=== PATIENT | male | born 1960 | race Caucasian/White ===

== ENCOUNTER 2019-06-29 09:36 | Emergency (ER) | payer OTHER ==
[~2019-06-29] VITALS: Ht 177.8 cm; Wt 86.6 kg
[2019-06-29 09:41] VITALS: BP 168/100
--- NOTE | 2019-06-29 10:01 | NUR ---
PATIENT PRESENTS TO ED WITH L MIDDLE FINGER SWELLING & 3/10 PAIN X 10 DAYS. PT SLAMMED THE DOOR ON HIS FINGER. +REDNESS +SKIN SLOUGHING +D/C -FEVER -BLEEDING -NUMBNESS. PULSES 2+ ON UPPER EXTREMITIES. PT EXPERIENCES PAIN WHEN MOVING L MIDDLE FINGER, UNABLE TO MAKE A FIST AND BEND FINGER. SKIN IS PINK/WARM/DRY; AAOX4 WITH EVEN AND STEADY GAIT; LUNGS CLEAR BL; HR EVEN AND REGULAR; VSS; PATIENT POSITIONED FOR COMFORT; HOB ELEVATED; BEDRAILS UP X2; BED DOWN. NO PMH. NO ALLERGIES. ER MD TO SEE PT.
[2019-06-29 10:44] VITALS: BP 142/88
--- NOTE | 2019-06-29 10:44 | NUR ---
Patient discharged with v/s stable. Written and verbal after care instructions given and explained. Patient alert, oriented and verbalized understanding of instructions. Ambulatory with steady gait. All questions addressed prior to discharge. ID band removed. Patient advised to follow up with PMD. Rx of BACTRIM, MOTRIN, KEFLEX given. Patient educated on indication of medication including possible reaction and side effects. Opportunity to ask questions provided and answered.
== END 2019-06-29 10:44 | disposition home or self-care (01) ==
LOC: MED 09:36
DX: L03.012 Cellulitis of left finger (principal)
CPT/HCPCS: 99283